=== PATIENT | female | born 1940 | race African-American/Black ===

== ENCOUNTER 2022-09-18 20:35 | Emergency (ER) | payer OTHER, MEDICAID ==
[~2022-09-18] VITALS: Ht 167.6 cm; Wt 62.0 kg
[2022-09-18] MEDS ORDERED: ACETAMINOPHEN 325MG TABLET PO ONE (21:15)
[2022-09-18] MEDS ORDERED: AMLODIPINE 2.5MG TABLET PO ONE (23:00)
[2022-09-18] MEDS ORDERED: LOSARTAN POTASSIUM 50 MG TABLET PO ONE (23:00)
[2022-09-18 23:35] VITALS: BP 146/86
== END 2022-09-18 23:40 | disposition home or self-care (01) ==
LOC: ER 20:35 → EDBD 20:35 → ER 23:40
DX: S09.90XA Unspecified injury of head, initial encounter (principal); W18.39XA Other fall on same level, initial encounter; Y93.89 Activity, other specified; Y92.89 Other specified places as the place of occurrence of the external cause; Y99.8 Other external cause status; I10 Essential (primary) hypertension; E11.9 Type 2 diabetes mellitus without complications
CPT/HCPCS: 99291

== ENCOUNTER 2023-05-18 12:54 | Emergency (ER) | payer OTHER, MEDICAID ==
[~2023-05-18] VITALS: Ht 172.7 cm; Wt 80.0 kg
[2023-05-18 13:18] VITALS: O2SAT 100
[2023-05-18] MEDS ORDERED: ASPIRIN 325MG TABLET PO ONE (13:45)
[2023-05-18] MEDS ORDERED: ASPIRIN 81MG TABLET PO NR (14:56)
[2023-05-18 14:59] LABS: BASOPHILS % 0.6 % (0.0-2.0); EOSINOPHILS % 0.7 % (0.0-5.0); HEMATOCRIT. 33.9 % (36.0-48.0); HEMOGLOBIN. 11.1 g/dL (12.0-16.0); LYMPHOCYTES % 35.9 % (20.0-50.0); MEAN CORPUSCULAR HEMOGLOBIN 32.1 pg (28.0-32.0); MEAN CORPUSCULAR HGB CONC 32.9 g/dL (31.0-37.0); MEAN CORPUSCULAR VOLUME 97.5 fL (81.0-99.0); MEAN PLATELET VOLUME 7.9 fl (7.4-10.4); NEUTROPHILS % 53.8 % (40.0-76.0); PLATELET 274 x1000/uL (130-400); RED BLOOD CELL COUNT 3.47 mill/uL (4.2-5.4); RED CELL DISTRIBUTION WIDTH 13.3 % (11.6-14.6); WHITE BLOOD COUNT 6.6 x1000/uL (4.5-11.0)
[2023-05-18 15:15] LABS: ALANINE AMINOTRANSFERASE 13 IU/L (10-49); ASPARTATE AMINOTRANSFERASE 15 IU/L (<34); BILIRUBIN TOTAL 0.5 mg/dL (0.1-1.0); CALCIUM 9.8 mg/dL (8.7-10.4); CARBON DIOXIDE 24 mEq/L (21-32); CHLORIDE 100 mEq/L (98-107); GLUCOSE 101 mg/dL (70-105); POTASSIUM 3.9 mEq/L (3.5-5.1); PROTEIN TOTAL 7.6 g/dL (6.0-8.3); SODIUM 132 mEq/L (136-145); TROPONIN I HIGH SENSITIVITY 6 ng/L (3.0-34); UREA NITROGEN BLOOD 9 mg/dL (9-23)
[2023-05-18 17:10] LABS: TROPONIN I HIGH SENSITIVITY 7 ng/L (3.0-34)
[2023-05-18 20:06] VITALS: BP 156/58; PULSE 62; RESP 16; TEMP 98
== END 2023-05-18 20:16 | disposition short-term general hospital (02) ==
LOC: ER 12:54 → CANBEDREQ 15:48 → ER 20:16
DX: R55 Syncope and collapse (principal); R07.9 Chest pain, unspecified; E11.9 Type 2 diabetes mellitus without complications; I12.0 Hypertensive chronic kidney disease with stage 5 chronic kidney disease or end stage renal disease; Z98.890 Other specified postprocedural states
CPT/HCPCS: 36415; 71045; 80053; 84484; 85025; 93005; 99285